=== PATIENT | male | born 2000 | race African-American/Black ===

== ENCOUNTER 2024-04-13 17:10 | Emergency (ER) | payer SELFPAY ==
[2024-04-13 17:10] VITALS: BP 132/90; PULSE 60; RESP 16; TEMP 36.8; O2SAT 99; BMI 20.5
--- NOTE | 2024-04-13 17:29 | NURSING ---
NO OLD EKGS
[2024-04-13 17:30] VITALS: O2SAT 98
--- NOTE | 2024-04-13 17:30 | EKG12_ITS ---
Test Reason : CP Blood Pressure : / mmHG Vent. Rate : 056 BPM Atrial Rate : 056 BPM P-R Int : 164 ms QRS Dur : 088 ms QT Int : 392 ms P-R-T Axes : 051 083 050 degrees QTc Int : 378 ms Sinus bradycardia Otherwise normal ECG Confirmed by MEME EDUARDO, CHANG ([id number]), editor managing newspaper JANUSZ CASTELLANOS ([id number]) on 04/14/2024 10:21:29 AM Referred By: Confirmed By:CHANG VALENTINE MD
--- NOTE | 2024-04-13 17:45 | RAD_ITS ---
EXAM: XR CHEST, 1 VIEW CLINICAL INDICATION: chest pain TECHNIQUE: Frontal view of the chest. COMPARISON: No relevant prior studies available. FINDINGS: LUNGS AND PLEURAL SPACES: No significant abnormality. No consolidation or edema. No pneumothorax. No effusion. HEART: No significant abnormality. Cardiac silhouette not enlarged. MEDIASTINUM: Central airways and mediastinal contour are unremarkable. BONES/JOINTS: No significant abnormality. No acute fracture. SOFT TISSUES: No significant abnormality. RAD/Chest 1 View (Portable) IMPRESSION: No radiographic evidence of acute cardiopulmonary disease. Electronically Signed: Jet Ramirez DO at 18:05 EDT ,
[2024-04-13 17:50] LABS: Absolute Lymphocyte Count 1.85 X10^3/uL (0.83-4.51); Absolute Neutrophil Count 4.2 X10^3/uL (2.0-7.7); Basophil# 0.04 X10^3/uL; Basophil% 0.6 % (0-1); Eosinophil# 0.08 X10^3/uL; Eosinophils% 1.2 % (0-5); Hematocrit 41.2 % (40-54); Hemoglobin 13.5 g/dL (13.0-16.5); Lymphocyte # 1.85 X10^3/ul (0.83-4.51); Lymphocyte % 26.8 % (19-41); Mean Corp Hgb Conc 32.8 g/dL (32-36); Mean Corpuscular Hgb 29.7 pg (27.0-32.0); Mean Corpuscular Volume 90.7 fL (80-94); Mean Platelet Vol. 9.6 fl (6.2-12.0); Monocyte% 10.1 % (0-10); NRBC Flagged by Analyzer 0 % (0-5); Neutrophil # 4.23 X10^3/uL (2.7-7.7); Neutrophil % 61.2 % (47-70); Platelet Count 242 K/mm3 (150-450); RBC Distribution Width CV 12.6 % (11.6-14.6); RBC Distribution Width SD 41.6 fl (35.1-43.9); Red Blood Count 4.54 M/mm3 (4.6-6.2); White Blood Count 6.9 K/mm3 (4.4-11.0)
[2024-04-13 18:07] LABS: Anion Gap 9 (5-15); BUN 12 mg/dL (7-18); BUN/Creat Ratio 10.9 RATIO (10-20); Calcium,Total 9.2 mg/dL (8.5-10.1); Chloride 107 mmol/L (98-107); EST Glomerular Filtration Rate 87 mL/min (>60); Est Glom Filt Rate - Afr Amer 105 mL/min (>60); Estimated Creatinine Clearance 107.95 ml/min; Glucose 94 mg/dL (74-106); Potassium 3.4 mmol/L (3.5-5.1); Sodium Level 141 mmol/L (136-145); Troponin-I HS 5 pg/mL (3.0-78.0)
[2024-04-13 18:10] VITALS: BP 141/90; PULSE 56; RESP 18; O2SAT 98
[2024-04-13] MEDS: Ketorolac 15 MG/ML Vial IV (18:12)
[2024-04-13 19:00] VITALS: BP 117/73; PULSE 53; RESP 15; O2SAT 98
[2024-04-13 20:00] VITALS: BP 127/73; PULSE 54; RESP 19; O2SAT 98
[2024-04-13 20:28] VITALS: BP 135/76; PULSE 56; RESP 16; TEMP 36.6; O2SAT 98
--- NOTE | 2024-04-13 21:20 | EDS_ITS ---
HPI History of Present Illness Chief Complaint: Chest Pain Narrative Narrative: Patient presenting with chest pain that is in the center of his chest radiates to the back. He states that sharp in nature. He states he has had it since yesterday. He states he was recently ill with a viral infection with cough, fever, chills a couple of weeks ago it was using his inhaler a lot. He has not had issues with inhaler recently. He does not feel like he is short of breath or wheezing. 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 Denies cardiac history. No fevers or chills currently. [facility] Home Medications ?Medication ?Instructions ?Recorded ?Last Taken ?Type NK 04/13/24 Unknown History Allergy/AdvReac Type Severity Reaction Status Date / Time No Known Allergies Allergy Verified 04/13/24 17:13 Social History Smoking Status: Never smoker ROS ROS ED Constitutional Constitutional ED: Denies chills, fever(s) or sweats Eyes Eyes: Denies blurry vision or change in vision ENT ENT ED: Denies ear pain or sore throat Cardiovascular Cardiovascular: Reports chest pain; Denies palpitations or racing heartbeat Respiratory/Chest Respiratory/Chest: Denies cough, dyspnea or sputum Gastrointestinal Gastrointestinal: Denies abdominal pain, constipation, diarrhea, nausea or vomiting Genitourinary Genitourinary ED: Denies dysuria, hematuria or urinary frequency Musculoskeletal Musculoskeletal: Denies arthralgias, myalgias or neck pain Integumentary Denies abscess, Abrasions or rash Neurologic Neurologic: Denies headache(s), paresthesias or weakness Psychiatric Psychiatric: Denies anxiety, depression, suicidal ideation or suicidal thoughts Endocrine Endocrinology: Denies polydipsia or polyuria EXAM Physical Exam Const Vital Signs: 04/13/24 17:10 04/13/24 17:10 04/13/24 17:30 Temperature 98.3 F Temperature Source Temporal Pulse Rate 60 Respiratory Rate 16 Respiratory Effort Normal Non-Labored Blood Pressure 132/90 H Blood Pressure Mean 104 Pulse Ox 99 98 Oxygen Delivery Method Room Air Room Air 04/13/24 18:10 04/13/24 19:00 04/13/24 20:00 Temperature Temperature Source Pulse Rate 56 L 53 L 54 L Respiratory Rate 18 15 19 H Respiratory Effort Blood Pressure 141/90 H 117/73 127/73 H Blood Pressure Mean 107 87 89 Pulse Ox 98 98 98 Oxygen Delivery Method Room Air 04/13/24 20:28 Temperature 98 F Temperature Source Pulse Rate 56 L Respiratory Rate 16 Respiratory Effort Blood Pressure 135/76 H Blood Pressure Mean 95 Pulse Ox 98 Oxygen Delivery Method Positive well nourished General Appearance ED: NAD HEENT Reports moist mucous membranes atraumatic Eyes PERRL and EOMs intact bilaterally Resp normal respiratory effort and clear to auscultation bilaterally Auscultation: Negative for rales, rhonchi or wheezes Cardio regular rate and regular rhythm GI normal to inspection, nondistended, normoactive bowel sounds Neuro oriented x3 and CN's II-XII intact bilaterally Sensorium / Orientation: awake and alert Psych mental status grossly normal Skin no rashes or lesions noted MDM MDM MDM Narrative Medical decision making narrative: Patient presenting with chest pain. Differential includes ACS, dysrhythmia, pneumonia, dehydration, anemia, electro abnormalities, costochondritis. Patient PERC negative unlikely to have PE. CBC will be obtained to assess white blood cell count, hemoglobin, platelets. BMP to assess renal function, electrolytes, glucose. High-sensitivity troponin and EKG to assess for ischemia/dysrhythmia. Chest x-ray to rule out pneumonia or CHF. IV was established. Patient given Toradol IV. CBC shows a normal blood cell count of 6.9. Hemoglobin 13.5. Platelets are normal at 242. Renal function electrolytes within normal limits. High-sensitivity troponin is 5. EKG sinus rhythm bradycardia with a rate of 56 bpm without sign of ischemic change or dysrhythmia. Chest x-ray interpreted by myself shows no acute cardiopulmonary process. On reevaluation patient states that the Toradol helped significantly. I recommended that he alternate Tylenol and ibuprofen at home. We discussed that he does not cardiac source for his chest pain. Return precautions discussed. Impression: 1. Chest pain Lab Data Attestation: I reviewed the patient's lab results. Labs: Laboratory Results - last 24 hr 04/13/24 17:37 WBC 6.9 RBC 4.54 L Hgb 13.5 Hct 41.2 MCV 90.7 MCH 29.7 MCHC 32.8 RDW Std Deviation 41.6 RDW Coeff of Asher 12.6 Plt Count 242 MPV 9.6 Immature Gran % (Auto) 0.100 Neut % (Auto) 61.2 Lymph % (Auto) 26.8 [place] % (Auto) 10.1 H Eos % (Auto) 1.2 Baso % (Auto) 0.6 Absolute Neuts (auto) 4.2 Absolute Lymphs (auto) 1.85 Nucleated RBC % 0 Sodium 141 Potassium 3.4 L Chloride 107 Carbon Dioxide 25.0 Anion Gap 9 BUN 12 Creatinine 1.10 Estim Creat Clear Calc 107.95 Est GFR (MDRD) Af Amer 105 Est GFR (MDRD) Non-Af 87 BUN/Creatinine Ratio 10.9 Glucose 94 Calcium 9.2 Troponin I High Sens 5 Radiography Diagnostic Testing: Clinical Impression(s) from Imaging Studies Chest X-Ray 04/13/24 17:45 IMPRESSION: No radiographic evidence of acute cardiopulmonary disease. Electronically Signed: Jet Ramirez DO at 18:05 EDT , Discharge Plan Triage Chief Complaint: Chest Pain ED Provider: Med Ignacio Dx/Rx/DC Orders Instructions: ED Chest Pain, Noncardiac Prescriptions: No Action NK Primary Care Provider: Care Physician,No Primary Referrals: Sada Erickson [facility] [Provider Group] - 3-5 Days Care Physician,No Primary [Primary Care Provider] - Print Language: Slovenian Disposition Disposition: Home, Self Care Discharge Date/Time: 04/13/24 20:29
== END 2024-04-13 20:29 | disposition home or self-care (01) ==
PROVIDERS: Emergency Provider Student in an Organized Health Care Education/Training Program; Visit Provider Student in an Organized Health Care Education/Training Program
DX: R07.9 Chest pain, unspecified (principal)
CPT/HCPCS: 71045; 80048; 84484; 85025; 93005; 96374; 99284; A4216